=== PATIENT | female | born 1950 | race Hispanic/Latino ===

== ENCOUNTER 2020-11-12 06:04 | Day surgery (SDC) | payer OTHER, MEDICARE ==
[2020-11-10 10:55] VITALS: BP 102/65
[2020-11-10 11:13] LABS: APPEARANCE,URINE Clear (CLEAR); BASOPHILS % (AUTO) 0.6 % (0.0-5.0); BILIRUBIN,URINE Negative (NEGATIVE); COLOR,URINE Yellow (YELLOW); EOSINOPHILS % (AUTO) 4.8 % (0.0-8.0); GLUCOSE, URINE (UA) >=1000 mg/dL (NEGATIVE); HEMATOCRIT 44.2 % (36-48); KETONES,URINE Negative (NEGATIVE); LEUKOCYTE ESTERASE ,URINE Negative (NEGATIVE); LYMPHOCYTES % (AUTO) 34.7 % (21.0-51.0); MEAN CORPUSCULAR HEMOGLOBIN 29.1 pg (27.0-33.0); MEAN CORPUSCULAR HGB CONC 32.6 g/dL (32.0-36.0); MEAN CORPUSCULAR VOLUME 89.3 fL (79-99); MONOCYTES % (AUTO) 6.9 % (3.0-13.0); NEUTROPHILS % (AUTO) 52.8 % (40.0-77.0); NITRATE,URINE Negative (NEGATIVE); OCCULT BLOOD,URINE Negative (NEGATIVE); PLATELET COUNT (AUTO) 100 K/uL (130-400); PROTEIN,URINE Negative (NEGATIVE); RED BLOOD CELL COUNT(AUTO) 4.95 MIL/uL (4.00-5.50); RED CELL DISTRIBUTION WIDTH 14.9 % (11.0-15.5); UROBILINOGEN,URINE 0.2 mg/dL (0.2-1.0); WHITE BLOOD COUNT (AUTO) 5.2 K/uL (4.8-10.8)
[2020-11-10 11:23] LABS: BACTERIA,URINE Rare /HPF (None Seen); RBC,URINE 0-1 /HPF (0-1); SQUAMOUS EPITHELIAL CELL,UR Rare /HPF (0-2); WBC,URINE 0-1 /HPF (0-1)
[2020-11-10 11:31] LABS: POTASSIUM 3.4 mmol/L (3.5-5.1)
[2020-11-10 11:32] LABS: INR 1.06 (0.85-1.15); PROTHROMBIN TIME 11.5 SEC (9.6-11.6)
[2020-11-10 11:34] LABS: PARTIAL THROMBOPLASTIN TIME 29.1 SEC (26.3-35.5)
[~2020-11-12] VITALS: Ht 157.5 cm; Wt 51.9 kg
[2020-11-12] VITALS (11 sets, daily range): BP systolic 92–110; BP diastolic 45–57
[~2020-11-12 06:04] MED LIST: AEC81 PO; ATOR10TA69 PO; CHOL500050 PO; EMPA25TA PO; FLUT1BLS3 IH; FURO40TA5 PO; ISOS10TA8 PO; LORA10TA7 PO; MILK1POW MC; MONT10TA32 PO; NINT100C PO; OMEP40CA21 PO; VIT1CAPS47 PO
[2020-11-12] MEDS ORDERED: INSULIN HUMULIN R 100 UNIT/ML 3ML IV SCH (07:06)
[2020-11-12] MEDS ORDERED: NITROGLYCERIN 2 MG VIAL IV ONE (07:12)
[2020-11-12] MEDS ORDERED: HEPARIN 10,000 UNIT/10ML (1,000 UNIT/ML) VIAL ONE (07:12)
[2020-11-12] MEDS ORDERED: SODIUM BICARB 50MEQ 50ML VIAL 50 ML ONE (07:12)
[2020-11-12] MEDS ORDERED: IOHEXOL 350 MG/ML 100ML INFUS..BTL IV ONE (07:13)
[2020-11-12] MEDS ORDERED: MIDAZOLAM HCL 1 MG/ML 2ML VIAL ONE (07:13)
[2020-11-12] MEDS ORDERED: LIDOCAINE HCL 400MG/20ML VIAL ONE (07:13)
[2020-11-12] MEDS ORDERED: IOHEXOL-350 75 ML VIAL IV ONE (07:13)
[2020-11-12] MEDS ORDERED: FENTANYL CITRATE PF 50 MCG/1 ML 2ML VIAL ONE (07:13)
[2020-11-12] MEDS ORDERED: 0.9%NACL 1000ML 1,000 ML IV SCH ×2 (08:00→09:30)
[2020-11-12] MEDS ORDERED: ADENOSINE 90MG VIAL IV ONE (08:28)
[2020-11-12] MEDS ORDERED: ISOSORBIDE DINITRATE 10MG TAB PO SCH (14:00)
== END 2020-11-12 14:45 | disposition home or self-care (01) ==
LOC: DAH 06:04
PROVIDERS: ATTEND Internal Medicine Cardiovascular Disease
DX: I25.119 Atherosclerotic heart disease of native coronary artery with unspecified angina pectoris (principal); J84.10 Pulmonary fibrosis, unspecified; I10 Essential (primary) hypertension; E11.9 Type 2 diabetes mellitus without complications; E78.5 Hyperlipidemia, unspecified; Z79.01 Long term (current) use of anticoagulants; Z79.899 Other long term (current) drug therapy; Z95.5 Presence of coronary angioplasty implant and graft; Z90.49 Acquired absence of other specified parts of digestive tract; Z90.710 Acquired absence of both cervix and uterus; Z98.51 Tubal ligation status; Z98.41 Cataract extraction status, right eye; Z98.42 Cataract extraction status, left eye; Z90.89 Acquired absence of other organs; Z98.890 Other specified postprocedural states
CPT/HCPCS: 36415; 71045; 80048; 81001; 82948 ×2; 85025; 85610; 85730; 93005; 93460; 93571; A4215; A4216; A4221; A4222; A4223 ×3; A4606; A4663; C1760; C1769; C1887; C1894 ×4; J0153; J1644 ×2; J1815; J2250; J3010; J3490 ×3; Q9965 ×2; Q9967 ×2; 96360; 96361; 99156; 99157

== ENCOUNTER 2021-03-25 07:54 | Day surgery (SDC) | payer OTHER, MEDICARE ==
[2021-03-24 13:23] LABS: BASOPHILS % (AUTO) 0.5 % (0.0-5.0); EOSINOPHILS % (AUTO) 3.8 % (0.0-8.0); HEMATOCRIT 40.2 % (36-48); LYMPHOCYTES % (AUTO) 36.7 % (21.0-51.0); MEAN CORPUSCULAR HEMOGLOBIN 30.5 pg (27.0-33.0); MEAN CORPUSCULAR HGB CONC 32.6 g/dL (32.0-36.0); MEAN CORPUSCULAR VOLUME 93.7 fL (79-99); MONOCYTES % (AUTO) 7.3 % (3.0-13.0); NEUTROPHILS % (AUTO) 51.4 % (40.0-77.0); PLATELET COUNT (AUTO) 75 K/uL (130-400); RED BLOOD CELL COUNT(AUTO) 4.29 MIL/uL (4.00-5.50); RED CELL DISTRIBUTION WIDTH 15.6 % (11.0-15.5); WHITE BLOOD COUNT (AUTO) 3.7 K/uL (4.8-10.8)
[2021-03-24 13:34] LABS: POTASSIUM 4.9 mmol/L (3.5-5.1)
[2021-03-24 13:39] LABS: APPEARANCE,URINE CLOUDY (CLEAR); BILIRUBIN,URINE NEGATIVE (NEGATIVE); COLOR,URINE YELLOW (YELLOW); GLUCOSE, URINE (UA) >=1000 mg/dL (NEGATIVE); KETONES,URINE NEGATIVE (NEGATIVE); LEUKOCYTE ESTERASE ,URINE SMALL (NEGATIVE); NITRATE,URINE POSITIVE (NEGATIVE); OCCULT BLOOD,URINE SMALL (NEGATIVE); PROTEIN,URINE NEGATIVE (NEGATIVE); UROBILINOGEN,URINE 0.2 mg/dL (0.2-1.0)
[2021-03-24 13:44] LABS: BACTERIA,URINE Many /HPF (None Seen); INR 1.08 (0.85-1.15); PROTHROMBIN TIME 11.7 SEC (9.6-11.6); WBC,URINE >100 /HPF (0-1)
[2021-03-24 13:45] LABS: SQUAMOUS EPITHELIAL CELL,UR Rare /HPF (0-2)
[2021-03-24 13:46] LABS: PARTIAL THROMBOPLASTIN TIME 30.6 SEC (26.3-35.5)
[2021-03-24 13:50] VITALS: BP 134/72
[~2021-03-25] VITALS: Ht 152.4 cm; Wt 50.5 kg
[2021-03-25] VITALS (9 sets, daily range): BP systolic 90–129; BP diastolic 49–72
[~2021-03-25 07:54] MED LIST changes: +0.9% NACL 500ML IV.SOLN 500 ML IV SCH; +BIVALIRUDIN 250 MG/VIAL IV ONE; +HEPARIN 10,000 UNIT/10ML (1,000 UNIT/ML) VIAL ONE; +IOHEXOL 350 MG/ML 100ML INFUS..BTL IV ONE; +IOHEXOL-350 50ML VIAL IV ONE; +LIDOCAINE HCL 400MG/20ML VIAL ONE; +MONT-39 PO; -MONT10TA32 PO; +NITROGLYCERIN 50MG VIAL IV ONE; +SODIUM BICARB 50MEQ 50ML VIAL 50 ML ONE
[2021-03-25] MEDS ORDERED: 0.9%NACL 1000ML 1,000 ML IV ONE (09:07)
[2021-03-25] MEDS ORDERED: ISOS30TA92 PO (10:02)
[2021-03-25] MEDS ORDERED: OXYB5TAB15 PO (10:06)
[2021-03-25] MEDS ORDERED: INSU100I21 SQ (10:06)
[2021-03-25] MEDS ORDERED: NITR0.4T50 SL (10:06)
[2021-03-25] MEDS ORDERED: ALBU90AE IH (10:09)
[2021-03-25] MEDS ORDERED: ENALAPRILAT DIHYDRATE 1.25 MG/ML 2ML VIAL IVP ONE (11:10)
[2021-03-25] MEDS ORDERED: ATROPINE 1MG SYG IVP ONE (13:41)
[2021-03-25] MEDS ORDERED: PHENYLEPHRINE HCL 10 MG/ML 5ML VIAL IV ONE (13:41)
[2021-03-25] MEDS ORDERED: MIDAZOLAM HCL 1 MG/ML 2ML VIAL ONE (13:51)
[2021-03-25] MEDS ORDERED: FENTANYL CITRATE PF 50 MCG/1 ML 2ML VIAL ONE (13:51)
[2021-03-25] MEDS ORDERED: HEPARIN 10,000 UNIT/10ML (1,000 UNIT/ML) VIAL ONE (14:15)
[2021-03-25] MEDS ORDERED: CLOPIDOGREL 300MG TAB ONE (15:20)
[2021-03-25] MEDS ORDERED: ASPIRIN 81MG CHEW TAB ONE (15:20)
[2021-03-25] MEDS ORDERED: AEC81 PO (15:44)
[2021-03-25] MEDS ORDERED: CLOP75TA32 PO (15:44)
[2021-03-25] MEDS ORDERED: PANT40TA55 PO (15:44)
[2021-03-25] MEDS: 0.9%NACL 1000ML 1,000 ML IV SCH ×2 (19:54→19:55)
[2021-03-26] MEDS ORDERED: ASPIRIN 81MG CHEW TAB PO SCH (09:00)
== END 2021-03-25 19:45 | disposition home or self-care (01) ==
LOC: DAH 07:54
PROVIDERS: ATTEND Internal Medicine Cardiovascular Disease
DX: I25.119 Atherosclerotic heart disease of native coronary artery with unspecified angina pectoris (principal); I10 Essential (primary) hypertension; E78.5 Hyperlipidemia, unspecified; E11.9 Type 2 diabetes mellitus without complications; D69.6 Thrombocytopenia, unspecified; K76.9 Liver disease, unspecified; Z98.890 Other specified postprocedural states; Z90.49 Acquired absence of other specified parts of digestive tract; Z90.89 Acquired absence of other organs; Z90.710 Acquired absence of both cervix and uterus; Z98.42 Cataract extraction status, left eye; Z98.41 Cataract extraction status, right eye; Z79.01 Long term (current) use of anticoagulants; Z79.899 Other long term (current) drug therapy
CPT/HCPCS: 36415 ×2; 71045; 80048; 81001; 82948 ×2; 85025; 85347; 85610; 85730; 87077; 87088; 87186; 93005 ×2; A4215; A4216; A4221; A4222; A4223 ×3; A4606; A4663; C1724; C1725; C1760; C1769 ×2; C1874 ×2; C1887; C1894 ×3; C9602; J1644 ×3; J2250; J3010; J3490 ×3; J7030; Q9965 ×2; Q9967; 93454; 99156; 99157; J0461; J0583; J2370